=== PATIENT | male | born 1995 | race Caucasian/White ===

== ENCOUNTER 2016-10-11 12:02 | Emergency (ER) | payer SELFPAY ==
[~2016-10-11] VITALS: Ht 185.4 cm; Wt 75.8 kg
[2016-10-11 12:06] VITALS: BP 131/90; PULSE 107; RESP 18; TEMP 98.9; O2SAT 99
--- NOTE | 2016-10-11 12:27 | PD ---
HPI Chief Complaint: ENT Complaint Time Seen by Provider: 12:15 Travel History International Travel<30 days: No Contact w/Intl Traveler<30days: No Traveled to known affect area: No History of Present Illness HPI 21-year-old male presents to the emergency room for evaluation of sore throat and congestion for the past 24 hours. Patient reports chills and sweats overnight but denies any objective fevers. Denies cough. States he is in a house full of people with a GI bug and strep throat. He has not taken anything for her symptoms. Denies chronic medical conditions or daily medications. PFSH Past Medical History Hx Anticoagulant Therapy: No Depression: Yes Cardiovascular Problems: No Chemotherapy: No Cerebrovascular Accident: No Diabetes: No Diminished Hearing: No Respiratory: No Immunizations Current: Yes Social History Alcohol Use: Yes (DAILY) Tobacco Use: Yes (1/2PPD) Substance Use: Yes (MARIJUANA, XANAX) Allergies-Medications (Allergen,Severity, Reaction): Coded Allergies: No Known Allergies (Unverified , 10/11/16) Reported Meds & Prescriptions Reported Meds & Active Scripts Active No Active Prescriptions or Reported Medications Review of Systems Except as stated in HPI: all other systems reviewed are Neg Physical Exam Narrative GENERAL: Well-nourished, well-developed male in no acute distress. Afebrile. Ambulatory. SKIN: Warm and dry. HEAD: Normocephalic. EYES: No scleral icterus. No injection or drainage. NECK: Supple, trachea midline. No JVD or lymphadenopathy. ENT: Mucosa pink and moist. Mild erythema without edema or exudates. No uvular edema. No uvular, palatal, or tonsillar deviation. Airway patent. Nasal turbinates appear normal without nasal blood, purulent drainage or septal hematoma. EARS: Bilateral pinnae and external canals appear within normal limits. Bilateral tympanic membranes without erythema, dullness or perforation. Data Data Last Documented VS Vital Signs Date Time Temp Pulse Resp B/P Pulse Ox O2 Delivery O2 Flow Rate FiO2 10/11/16 12:06 98.9 107 18 131/90 99 Orders Group A Rapid Strep Screen (10/11/16 12:19) Strep Culture (Group A) (10/11/16 12:15) MDM Medical Decision Making Medical Screen Exam Complete: Yes Emergency Medical Condition: Yes Medical Record Reviewed: Yes Differential Diagnosis URI versus strep typical pharyngitis versus influenza less likely Narrative Course 21-year-old male presents to the emergency room for evaluation of cold and sore throat symptoms for the past day. Patient is afebrile well-appearing in the emergency room. Physical exam reassuring. Mild erythema of the pharynx without edema or exudates. Rapid strep is negative. This is URI. Patient discharged with instructions to take [id number] treatments and follow-up with a primary care physician. He understands and agrees to plan. Diagnosis Primary Impression: Upper respiratory infection Qualified Code: J00 - Acute nasopharyngitis Referrals: Primary Care Physician Patient Instructions: General Instructions, Upper Respiratory Infection (ED) Additional Instructions: Rest and drink plenty of fluids. [id number] medications as directed for symptoms. Take ibuprofen with food as directed, as needed for pain. Follow-up with a primary care physician. Return to the emergency room for worsening symptoms. Scripts No Active Prescriptions or Reported Meds Disposition: 01 DISCHARGE HOME Condition: Stable Barbie Segovia Oct 11, 2016 12:27
== END 2016-10-11 13:00 | disposition home or self-care (01) ==
LOC: PHEFT 12:02
DX: J06.9 Acute upper respiratory infection, unspecified (principal); F17.210 Nicotine dependence, cigarettes, uncomplicated; F12.90 Cannabis use, unspecified, uncomplicated
CPT/HCPCS: 87081; 87880; 99283

== ENCOUNTER 2017-04-30 19:51 | Emergency (ER) | payer OTHER ==
[2017-04-30 20:05] VITALS: BP 130/74; PULSE 87; RESP 18; O2SAT 97
--- NOTE | 2017-04-30 20:49 | PD ---
HPI Chief Complaint: Psychiatric Symptoms Time Seen by Provider: 20:49 Travel History International Travel<30 days: No Contact w/Intl Traveler<30days: No History of Present Illness HPI 22-year-old male presents to the emergency department under [place] act by local police for psychiatric evaluation. The patient states that he got to a fight with his after he cut himself. Apparently, due to them being very loud the neighbors called the police. He denies any suicidal or homicidal ideations to me. He states he drank 2 beers today. He states he smokes marijuana weekly. He denies any medical complaints at this time. Patient states his tetanus immunization was updated 1 year ago. PFSH Past Medical History Hx Anticoagulant Therapy: No Depression: Yes Cardiovascular Problems: No Chemotherapy: No Cerebrovascular Accident: No Diabetes: No Diminished Hearing: No Respiratory: No Immunizations Current: Yes Social History Alcohol Use: Yes (DAILY) Tobacco Use: Yes (1/2PPD) Substance Use: Yes (MARIJUANA, XANAX) Allergies-Medications (Allergen,Severity, Reaction): Coded Allergies: No Known Allergies (Unverified , 10/11/16) Reported Meds & Prescriptions Reported Meds & Active Scripts Active No Active Prescriptions or Reported Medications Review of Systems Except as stated in HPI: all other systems reviewed are Neg Physical Exam Narrative GENERAL: Well-nourished, well-developed male patient, afebrile. SKIN: Focused skin assessment warm/dry. Patient has superficial lacerations to the left lower leg and left forearm. HEAD: Normocephalic. Atraumatic EYES: No scleral icterus. No injection or drainage. NECK: Supple, trachea midline. No JVD or lymphadenopathy. CARDIOVASCULAR: Regular rate and rhythm without murmurs, gallops, or rubs. RESPIRATORY: Breath sounds equal bilaterally. No accessory muscle use. Lungs sounds are clear to auscultation. GASTROINTESTINAL: Abdomen soft, non-tender, nondistended. MUSCULOSKELETAL: No cyanosis, or edema. PSYCHIATRIC: No delusional thought processes. No hallucinations. Data Data Last Documented VS Vital Signs Date Time Temp Pulse Resp B/P Pulse Ox O2 Delivery O2 Flow Rate FiO2 04/30/17 22:07 82 18 114/56 97 Room Air 04/30/17 21:55 98.9 Orders Complete Blood Count With Diff (04/30/17 20:15) Comprehensive Metabolic Panel (04/30/17 20:15) Psych Screen (04/30/17 20:15) Drug Screen, Random Urine (04/30/17 20:15) Alcohol (Ethanol) (04/30/17 20:15) Salicylates (Aspirin) (04/30/17 20:15) Tylenol (Acetaminophen) (04/30/17 20:15) Labs Laboratory Tests Test 04/30/17 04/30/17 20:10 20:25 Urine Opiates Screen NEG Urine Barbiturates Screen NEG Urine Amphetamines Screen NEG Urine Benzodiazepines Screen NEG Urine Cocaine Screen NEG Urine Cannabinoids Screen POS White Blood Count 8.9 TH/MM3 Red Blood Count 5.32 MIL/MM3 Hemoglobin 15.8 GM/DL Hematocrit 46.7 % Mean Corpuscular Volume 87.7 FL Mean Corpuscular Hemoglobin 29.7 PG Mean Corpuscular Hemoglobin 33.8 % Concent Red Cell Distribution Width 13.0 % Platelet Count 262 TH/MM3 Mean Platelet Volume 7.2 FL Neutrophils (%) (Auto) 63.9 % Lymphocytes (%) (Auto) 25.9 % Monocytes (%) (Auto) 7.2 % Eosinophils (%) (Auto) 2.0 % Basophils (%) (Auto) 1.0 % Neutrophils # (Auto) 5.7 TH/MM3 Lymphocytes # (Auto) 2.3 TH/MM3 Monocytes # (Auto) 0.6 TH/MM3 Eosinophils # (Auto) 0.2 TH/MM3 Basophils # (Auto) 0.1 TH/MM3 CBC Comment DIFF FINAL Differential Comment Sodium Level 139 MEQ/L Potassium Level 4.0 MEQ/L Chloride Level 105 MEQ/L Carbon Dioxide Level 30.4 MEQ/L Anion Gap 4 MEQ/L Blood Urea Nitrogen 8 MG/DL Creatinine 1.09 MG/DL Estimat Glomerular Filtration 85 ML/MIN Rate Random Glucose 88 MG/DL Calcium Level 9.4 MG/DL Total Bilirubin 0.5 MG/DL Aspartate Amino Transf 24 U/L (AST/SGOT) Alanine Aminotransferase 22 U/L (ALT/SGPT) Alkaline Phosphatase 73 U/L Total Protein 9.1 GM/DL Albumin 5.0 GM/DL Salicylates Level 9.3 MG/DL Acetaminophen Level LESS THAN 2.0 MCG/ML Ethyl Alcohol Level 73 MG/DL MDM Medical Decision Making Medical Screen Exam Complete: Yes Emergency Medical Condition: Yes Medical Record Reviewed: Yes Differential Diagnosis Depression versus anxiety versus alcohol intoxication versus substance induced mood disorder Narrative Course 22-year-old male presents to the emergency Department under [place] act by local police. He cut himself and then he got to fight with his . Police were called due to how well they were. Both he has been in the way for brought in under [place] act. CBC is unremarkable. CMP shows no acute abnormality. Urine drug screen is positive for cannabinoids. Alcohol level is 73. Salicylate level is 9.3. Tylenol level is less than 2.0. Patient is medically cleared for psychiatric screening and disposition. Mental health screening discussed with the patient. Psychiatric screen ordered. Diagnosis Primary Impression: Substance induced mood disorder Additional Instructions: Patient is medically cleared for psychiatric screening and disposition. Scripts No Active Prescriptions or Reported Meds Condition: Rosa Sesay Apr 30, 2017 20:49
[2017-04-30 20:53] LABS: AUTOMATED NEUTROPHIL # 5.7 TH/MM3 (1.8-7.7); BASOPHIL # 0.1 TH/MM3 (0-0.2); EOSINOPHIL # 0.2 TH/MM3 (0-0.4); HEMATOCRIT 46.7 % (39.0-51.0); HEMO FLAGS DIFF FINAL; LYMPH % 25.9 % (9.0-44.0); LYMPHOCYTE # 2.3 TH/MM3 (1.0-4.8); MEAN CELL VOLUME 87.7 FL (80.0-100.0); MEAN CORPUSCULAR HEMOGLOBIN 29.7 PG (27.0-34.0); MEAN CORPUSCULAR HGB CONC 33.8 % (32.0-36.0); MONO % 7.2 % (0.0-8.0); NEUT % 63.9 % (16.0-70.0); PLATELET COUNT 262 TH/MM3 (150-450); RED BLOOD COUNT 5.32 MIL/MM3 (4.50-5.90); WHITE BLOOD COUNT 8.9 TH/MM3 (4.0-11.0)
[2017-04-30 21:08] LABS: ANION GAP 4 MEQ/L (5-15); AST (GOT) 24 U/L (15-37); BICARBONATE 30.4 MEQ/L (21.0-32.0); BLOOD UREA NITROGEN 8 MG/DL (7-18); CHLORIDE 105 MEQ/L (98-107); GLOMERULAR FILTRATION RATE 85 ML/MIN (>89); SODIUM (NA) 139 MEQ/L (136-145)
[2017-04-30 21:10] LABS: ALCOHOL 73 MG/DL (0-5)
[2017-04-30 21:15] LABS: ALKALINE PHOSPHATASE 73 U/L (45-117); ALT (GPT) 22 U/L (12-78); TOTAL BILIRUBIN ADULT 0.5 MG/DL (0.2-1.0)
[2017-04-30 21:28] LABS: ACETAMINOPHEN LESS THAN 2.0 MCG/ML (10.0-30.0)
[2017-04-30 21:55] VITALS: TEMP 98.9
[2017-04-30 22:07] VITALS: BP 114/56; PULSE 82; RESP 18; O2SAT 97
[2017-05-01 02:19] VITALS: BP 128/65; PULSE 63; RESP 17; O2SAT 98
[2017-05-01 06:25] VITALS: BP 122/64; PULSE 67; RESP 18; O2SAT 96
[2017-05-01 10:00] VITALS: BP 128/74; PULSE 90; RESP 18
--- NOTE | 2017-05-01 12:16 | PD ---
History of Present Illness Chief Complaint: Psychiatric Symptoms Time Seen by Provider: 10:30 Travel History International Travel<30 Days: No Contact w/Intl Traveler<30days: No Known affected area: No Legal Status Legal Status: [employer] Act [place] Act Signed By: Danuta Dang History of Present Illness: 22-year-old male brought in under a Ontiver[place] act for cutting himself after a verbal altercation with his . Patient states she came home and found him intoxicated and became quite upset. The 2 got into a loud argument and both parties behave badly. There is some history the also became intoxicated and cut herself. At this point, the patient is no longer intoxicated and he is calm, pleasant and cooperative. He exhibits no suicidal or homicidal ideation, plan or intent. He exhibits no psychotic symptoms and his cognition is intact. He is verbally jenna for safety and would like to meet with his , who is in another part of the emergency department, and go home. PFSH Past Medical History Hx Anticoagulant Therapy: No Depression: Yes Cardiovascular Problems: No Chemotherapy: No Cerebrovascular Accident: No Diabetes: No Diminished Hearing: No Respiratory: No Immunizations Current: Yes Psychiatric History Psychiatric History Hx Psychiatric Treatment: PATIENT DENIES History of Inpatient Treatment: No Guns or firearms in home: No Social History Hx Alcohol Use: Yes (DAILY) Hx Tobacco Use: Yes (1/2PPD) Hx Substance Use: Yes Substance Use Type: Alcohol, Marijuana Other Substances Used: Unable to obtain any information but current use apparent Hx of Substance Use Treatment: No Allergies-Medications (Allergen,Severity, Reaction): Coded Allergies: No Known Allergies (Unverified , 10/11/16) Reported Meds & Prescriptions Reported Meds & Active Scripts Active No Active Prescriptions or Reported Medications Review of Systems Except as stated in HPI: all other systems reviewed are Neg Exam Alert: Yes [place]: Person, Place, Date, Situation Mood: Calm Affect: Appropriate Speech: Clear, Logical Eye Contact: Normal Memory Intact: Immediate, Recent, Remote Insight/Judgement Adequate MDM Medical Decision Making Medical Record Reviewed: Yes Assessment/Plan At this time, the patient is not felt to meet criteria for Ontiveros act. His medical record has been reviewed and this physician has spoken with his nurse. He denies suicidal or homicidal ideation, plan or intent and is cognitively intact. He is verbally jenna for safety and does not meet criteria for involuntary psychiatric hospitalization. Orders Complete Blood Count With Diff (04/30/17 20:15) Comprehensive Metabolic Panel (04/30/17 20:15) Psych Screen (04/30/17 20:15) Drug Screen, Random Urine (04/30/17 20:15) Alcohol (Ethanol) (04/30/17 20:15) Salicylates (Aspirin) (04/30/17 20:15) Tylenol (Acetaminophen) (04/30/17 20:15) Diet Regular Basic (05/01/17 Breakfast) Diet Regular Basic (05/01/17 Lunch) Results Vital Signs Date Time Temp Pulse Resp B/P Pulse Ox O2 Delivery O2 Flow Rate FiO2 05/01/17 10:00 90 18 128/74 Room Air 05/01/17 06:25 67 18 122/64 96 Room Air 05/01/17 02:19 63 17 128/65 98 Room Air 04/30/17 22:07 82 18 114/56 97 Room Air 04/30/17 21:55 98.9 04/30/17 20:05 87 18 130/74 97 Room Air Laboratory Tests Test 04/30/17 04/30/17 20:10 20:25 Urine Opiates Screen NEG Urine Barbiturates Screen NEG Urine Amphetamines Screen NEG Urine Benzodiazepines Screen NEG Urine Cocaine Screen NEG Urine Cannabinoids Screen POS White Blood Count 8.9 Red Blood Count 5.32 Hemoglobin 15.8 Hematocrit 46.7 Mean Corpuscular Volume 87.7 Mean Corpuscular Hemoglobin 29.7 Mean Corpuscular Hemoglobin 33.8 Concent Red Cell Distribution Width 13.0 Platelet Count 262 Mean Platelet Volume 7.2 Neutrophils (%) (Auto) 63.9 Lymphocytes (%) (Auto) 25.9 Monocytes (%) (Auto) 7.2 Eosinophils (%) (Auto) 2.0 Basophils (%) (Auto) 1.0 Neutrophils # (Auto) 5.7 Lymphocytes # (Auto) 2.3 Monocytes # (Auto) 0.6 Eosinophils # (Auto) 0.2 Basophils # (Auto) 0.1 CBC Comment DIFF FINAL Differential Comment Sodium Level 139 Potassium Level 4.0 Chloride Level 105 Carbon Dioxide Level 30.4 Anion Gap 4 Blood Urea Nitrogen 8 Creatinine 1.09 Estimat Glomerular Filtration 85 Rate Random Glucose 88 Calcium Level 9.4 Total Bilirubin 0.5 Aspartate Amino Transf 24 (AST/SGOT) Alanine Aminotransferase 22 (ALT/SGPT) Alkaline Phosphatase 73 Total Protein 9.1 Albumin 5.0 Salicylates Level 9.3 Acetaminophen Level LESS THAN 2.0 Ethyl Alcohol Level 73 Diagnosis Primary Impression: Adjustment disorder with mixed disturbance of emotions and conduct Additional Impression: Alcohol abuse Departure Forms: Tests/Procedures Patient Instructions: General Instructions, Mood Disorders (ED), Medical Clearance for Psychiatric Care (ED) Additional Instructions: Patient is medically cleared for psychiatric screening and disposition. Follow up with outpatient primary care provider. Follow up with outpatient counseling/[place] [facility] Act [phone]. Return to ER if symtoms worsen. Prescriptions No Active Prescriptions or Reported Meds Disposition: 01 DISCHARGE HOME Condition: Stable Problem Qualifiers Tonio Werner MD May 01, 2017 12:16
== END 2017-05-01 12:39 | disposition home or self-care (01) ==
LOC: NEPJ 19:51
DX: F43.25 Adjustment disorder with mixed disturbance of emotions and conduct (principal); F10.10 Alcohol abuse, uncomplicated; F19.94 Other psychoactive substance use, unspecified with psychoactive substance-induced mood disorder; F17.200 Nicotine dependence, unspecified, uncomplicated
CPT/HCPCS: 80053; 80307; 85025; 99283

== ENCOUNTER 2017-12-30 13:57 | Emergency (ER) | payer OTHER ==
[2017-12-30 14:08] VITALS: BP 137/71; PULSE 97; RESP 18; TEMP 98.4; O2SAT 98
[2017-12-30 15:16] LABS: ALBUMIN 4.8 GM/DL (3.4-5.0); ALT (GPT) 24 U/L (12-78); AST (GOT) 22 U/L (15-37); BLOOD UREA NITROGEN 7 MG/DL (7-18); CALCIUM 9.4 MG/DL (8.5-10.1); CHLORIDE 106 MEQ/L (98-107); CREATININE 0.94 MG/DL (0.60-1.30); GLOMERULAR FILTRATION RATE 100 ML/MIN (>89); GLUCOSE,RANDOM 84 MG/DL (74-106); SODIUM (NA) 142 MEQ/L (136-145)
--- NOTE | 2017-12-30 15:25 | PD ---
HPI Chief Complaint: Psychiatric Symptoms Time Seen by Provider: 14:13 Travel History International Travel<30 days: No Contact w/Intl Traveler<30days: No Traveled to known affect area: No History of Present Illness HPI Patient is a 22-year-old male presenting to the emergency department under [place] act for psychiatric evaluation. Patient was observed cutting his arm. Patient denies any suicidal ideations. He reports that he cut his arm because he was upset. His girlfriend and his male friend got an argument, they both walked off in different directions upsetting him. He states they both came back and were fine and he felt better. Apparently a bystander called the police when they noticed he was cutting himself. Patient reports previous suicide attempt. He is homeless currently by choice apparently. Patient is a musician. He has a history of anxiety, ADHD, bipolar disorder, mild schizophrenia. He does not like taking medications. He denies that he hallucinations. He has no physical complaints at this time. Symptom onset is unknown, symptoms are mild in nature. Patient reports cutting helps him cope. PFSH Past Medical History Hx Anticoagulant Therapy: No ADHD: Yes Bipolar Disorder: Yes Anxiety: Yes Depression: Yes Immunizations Current: Yes Schizophrenia: Yes Social History Alcohol Use: Yes (DAILY) Tobacco Use: Yes (1/2PPD) Substance Use: Yes Allergies-Medications (Allergen,Severity, Reaction): Coded Allergies: No Known Allergies (Unverified , 10/11/16) Reported Meds & Prescriptions Reported Meds & Active Scripts Active No Active Prescriptions or Reported Medications Review of Systems Except as stated in HPI: all other systems reviewed are Neg Skin: Positive Lesions Psychiatric: Positive: Mood Disorder, No: Depression, Suicidal Ideations, Homicidal Ideation Physical Exam Narrative GENERAL: Well-developed, well-nourished, slightly disheveled male. Presenting in no acute distress. SKIN: Warm and dry. 8 superficial lacerations to left inner forearm. HEAD: Atraumatic. Normocephalic. EYES: Pupils equal and round. No scleral icterus. No injection or drainage. ENT: No nasal bleeding or discharge. Mucous membranes pink and moist. NECK: Trachea midline. No JVD. CARDIOVASCULAR: Regular rate and rhythm. RESPIRATORY: No accessory muscle use. Clear to auscultation. Breath sounds equal bilaterally. GASTROINTESTINAL: Abdomen soft, non-tender, nondistended. Hepatic and splenic margins not palpable. MUSCULOSKELETAL: Extremities without clubbing, cyanosis, or edema. No obvious deformities. NEUROLOGICAL: Awake and alert. No obvious cranial nerve deficits. Motor grossly within normal limits. Five out of 5 muscle strength in the arms and legs. Normal speech. PSYCHIATRIC: Appropriate mood and affect; insight and judgment normal. Data Data Last Documented VS Vital Signs Date Time Temp Pulse Resp B/P (MAP) Pulse Ox O2 Delivery O2 Flow Rate FiO2 12/30/17 14:08 98.4 97 18 137/71 (93) 98 Room Air Orders Orders Complete Blood Count With Diff (12/30/17 14:13) Comprehensive Metabolic Panel (12/30/17 14:13) Thyroid Stimulating Hormone (12/30/17 14:13) Psych Screen (12/30/17 14:13) Drug Screen, Random Urine (12/30/17 14:13) Alcohol (Ethanol) (12/30/17 14:13) Salicylates (Aspirin) (12/30/17 14:13) Tylenol (Acetaminophen) (12/30/17 14:13) Diet Regular Basic (12/30/17 Dinner) Ed Discharge Order (12/30/17 15:27) Labs Laboratory Tests Test 12/30/17 14:27 12/30/17 14:30 Salicylates Level 3.6 MG/DL Urine Opiates Screen NEG Urine Barbiturates Screen NEG Urine Amphetamines Screen NEG Urine Benzodiazepines Screen NEG Urine Cocaine Screen NEG Urine Cannabinoids Screen POS MDM Medical Decision Making Medical Screen Exam Complete: Yes Emergency Medical Condition: Yes Medical Record Reviewed: Yes Interpretation(s) Vital Signs Date Time Temp Pulse Resp B/P (MAP) Pulse Ox O2 Delivery O2 Flow Rate FiO2 12/30/17 14:08 98.4 97 18 137/71 (93) 98 Room Air Differential Diagnosis Mood disorder versus substance abuse versus impaired coping skills versus schizophrenia versus other Narrative Course Patient is a 22-year-old male presenting to the emergency department under Ontiver[place] act for psychiatric evaluation. Patient is well appearing, his vital signs are stable. Mental health screening discussed with the patient. Psychiatric screen ordered. Patient denied suicidality. Chemistry is unremarkable. Patient is medically cleared. Wounds were cleaned with chlorhexidine 9 and water. They were redressed with gauze and Carlos. Diagnosis Primary Impression: Medical clearance for psychiatric admission Additional Impression: Superficial laceration Scripts No Active Prescriptions or Reported Meds Condition: Allie Mckeon Dec 30, 2017 15:25
[2017-12-30 15:27] LABS: ALKALINE PHOSPHATASE 71 U/L (45-117); TOTAL BILIRUBIN ADULT 0.5 MG/DL (0.2-1.0); TOTAL PROTEIN 8.8 GM/DL (6.4-8.2)
--- NOTE | 2017-12-30 15:30 | PD ---
Physical Exam Narrative Patient was seen by medical team. Patient was seen by psychiatric team. Data Data Last Documented VS Orders Orders Comprehensive Metabolic Panel (12/30/17 14:13) Thyroid Stimulating Hormone (12/30/17 14:13) Psych Screen (12/30/17 14:13) Drug Screen, Random Urine (12/30/17 14:13) Alcohol (Ethanol) (12/30/17 14:13) Salicylates (Aspirin) (12/30/17 14:13) Tylenol (Acetaminophen) (12/30/17 14:13) Ed Discharge Order (12/30/17 15:27) Labs Laboratory Tests Test 12/30/17 14:27 12/30/17 14:30 Blood Urea Nitrogen 7 MG/DL Creatinine 0.94 MG/DL Random Glucose 84 MG/DL Total Protein 8.8 GM/DL Albumin 4.8 GM/DL Calcium Level 9.4 MG/DL Alkaline Phosphatase 71 U/L Aspartate Amino Transf (AST/SGOT) 22 U/L Alanine Aminotransferase (ALT/SGPT) 24 U/L Total Bilirubin 0.5 MG/DL Sodium Level 142 MEQ/L Potassium Level 4.2 MEQ/L Chloride Level 106 MEQ/L Carbon Dioxide Level 27.0 MEQ/L Anion Gap 9 MEQ/L Estimat Glomerular Filtration Rate 100 ML/MIN Thyroid Stimulating Hormone 3rd Gen 0.943 uIU/ML Salicylates Level 3.6 MG/DL Acetaminophen Level LESS THAN 2.0 MCG/ML Ethyl Alcohol Level 75 MG/DL Urine Opiates Screen NEG Urine Barbiturates Screen NEG Urine Amphetamines Screen NEG Urine Benzodiazepines Screen NEG Urine Cocaine Screen NEG Urine Cannabinoids Screen POS MDM Supervised Visit with AZEEM: No Narrative Course Patient was seen by medical team. Patient was seen by psychiatry team. Patient cleared by psychiatry team to be discharged. I lifted his Ontiveros act Diagnosis Primary Impression: Adjustment disorder with mixed disturbance of emotions and conduct Patient Instructions: General Instructions Additional Instruction: Advised patient to follow local physician. Med/Other Pt SpecificInfo: No Change to Meds Scripts No Active Prescriptions or Reported Meds Disposition: 01 DISCHARGE HOME Condition: Stable Akhil Guerrier MD Dec 30, 2017 15:30
[2017-12-30 15:38] LABS: ACETAMINOPHEN LESS THAN 2.0 MCG/ML (10.0-30.0)
--- NOTE | 2017-12-30 16:07 | PD ---
History of Present Illness Chief Complaint: Psychiatric Symptoms Time Seen by Provider: 15:15 Travel History International Travel<30 Days: No Contact w/Intl Traveler<30days: No Known affected area: No Legal Status Legal Status: Ontiveros Act Ontiveros Act Signed By: Corinne Dang History of Present Illness: This is a 22-year-old single, male who presents under Ontiveros act to this facility for reportedly attempting suicide. However, even the Ontiveros act states that when the police spoke with him he stated that he was "cutting his wrists due to him being upset" and at no time has patient reported being suicidal. Reviewed electronic medical record, labs, discuss case with staff. Patient reports cannabis use which was bore out by his toxicology report. Evaluation performed in patient's room. Patient is awake, alert, and oriented. His speech is logical, clear, and organized. He is not internally stimulated. I can elicit no delusional material at this time. Patient's mood is good and his affect is euthymic. Patient admits to placing the superficial cuts on his arm. He states that he self mutilated when he is having difficulty coping. He relates an incident where his "band made and girlfriend had an argument and walked in separate directions". He reports that this has resolved and that he no longer has the urge to self-harm. His mother has corroborated that she feels patient is safe for discharge. Patient reports having a bus ticket to [place] for 7 PM this evening. Discussed this case with Dr. Guerrier from the ED. He agrees with my assessment and has lifted the Ontiveros act. PFSH Past Medical History Hx Anticoagulant Therapy: No ADHD: Yes Bipolar Disorder: Yes Anxiety: Yes Depression: Yes Immunizations Current: Yes Schizophrenia: Yes Psychiatric History Psychiatric History Hx Psychiatric [place] [facility] [place] of Inpatient Treatment: No Social History Hx Alcohol Use: Yes (DAILY) Hx Tobacco Use: Yes (1/2PPD) Hx Substance Use: Yes Substance Use Type: Alcohol, Marijuana Other Substances Used: Unable to obtain any information but current use apparent Hx of Substance Use Treatment: No Allergies-Medications (Allergen,Severity, Reaction): Coded Allergies: No Known Allergies (Unverified , 10/11/16) Reported Meds & Prescriptions Reported Meds & Active Scripts Active No Active Prescriptions or Reported Medications Mental Status Examination Appearance: Appropriate Consciousness: Alert Orientation: x4 Motor Activity: Normal gait Speech: Unremarkable Language: Adequate Fund of Knowledge: Adequate Attention and Concentration: Adequate Memory: Unremarkable Mood: Appropriate Affect: Appropriate Thought Process & Associations: Intact Thought Content: Appropriate Hallucination Type: None Delusion Type: None Suicidal Ideation: No Suicidal Plan: No Suicidal Intention: No Homicidal Ideation: No Homicidal Plan: No Homicidal Intention: No Insight: Adequate Judgment: Impulsive MDM Medical Decision Making Medical Record Reviewed: Yes Assessment/Plan 22-year-old single, male who presents under a Ontiveros act to this facility for self-mutilation and "attempted suicide". Patient denies at any time feeling suicidal or attempting to take his life. He states that he has a history of self-mutilation via cutting. He admits to putting superficial cuts on his arm due to being upset over a disagreement between his friends. He denies having any further urges to cause self-harm. His speech is clear, logical, and organized. He denies suicidal and homicidal ideation as well as AVH. There is no indication of internal stimulation. I can elicit no delusional material. Is alert and oriented 4. His mood is good and his affect is euthymic. His mother corroborates his story over the phone. Patient has a bus ticket to go to [place] at 7 PM this evening and he and his mom would like him to make that. At this time he does not meet Ontiveros act criteria. Consulted with Dr. Guerrier in the ED who agrees with this assessment and has lifted the Ontiveros act. Patient is to be discharged with orders to present to the nearest ED if he has further urges to self harm. Orders Orders Complete Blood Count With Diff (12/30/17 14:13) Comprehensive Metabolic Panel (12/30/17 14:13) Thyroid Stimulating Hormone (12/30/17 14:13) Psych Screen (12/30/17 14:13) Drug Screen, Random Urine (12/30/17 14:13) Alcohol (Ethanol) (12/30/17 14:13) Salicylates (Aspirin) (12/30/17 14:13) Tylenol (Acetaminophen) (12/30/17 14:13) Diet Regular Basic (12/30/17 Dinner) Ed Discharge Order (12/30/17 15:27) Results Vital Signs Date Time Temp Pulse Resp B/P (MAP) Pulse Ox O2 Delivery O2 Flow Rate FiO2 12/30/17 14:08 98.4 97 18 137/71 (93) 98 Room Air Laboratory Tests Test 12/30/17 14:27 12/30/17 14:30 Blood Urea Nitrogen 7 Creatinine 0.94 Random Glucose 84 Total Protein 8.8 Albumin 4.8 Calcium Level 9.4 Alkaline Phosphatase 71 Aspartate Amino Transf (AST/SGOT) 22 Alanine Aminotransferase (ALT/SGPT) 24 Total Bilirubin 0.5 Sodium Level 142 Potassium Level 4.2 Chloride Level 106 Carbon Dioxide Level 27.0 Anion Gap 9 Estimat Glomerular Filtration Rate 100 Thyroid Stimulating Hormone 3rd Gen 0.943 Salicylates Level 3.6 Acetaminophen Level LESS THAN 2.0 Ethyl Alcohol Level 75 Urine Opiates Screen NEG Urine Barbiturates Screen NEG Urine Amphetamines Screen NEG Urine Benzodiazepines Screen NEG Urine Cocaine Screen NEG Urine Cannabinoids Screen POS Diagnosis Primary Impression: Adjustment disorder with mixed disturbance of emotions and conduct Psychiatrically Cleared: Yes Referrals: [facility] (Out patient) call for appointment Medication Management Departure Forms: Tests/Procedures Patient Instructions: General Instructions, Stress (ED) Additional Instructions: Advised patient to follow local physician. Prescriptions No Active Prescriptions or Reported Meds Disposition: 01 DISCHARGE HOME Condition: Stable Desire Matute Dec 30, 2017 16:07
== END 2017-12-30 18:10 | disposition home or self-care (01) ==
LOC: NEPJ 13:57
DX: F43.25 Adjustment disorder with mixed disturbance of emotions and conduct (principal); F12.90 Cannabis use, unspecified, uncomplicated; F17.200 Nicotine dependence, unspecified, uncomplicated
CPT/HCPCS: 80053; 80307; 84443; 99284

== ENCOUNTER 2018-02-04 12:14 | Emergency (ER) | payer SELFPAY ==
[~2018-02-04] VITALS: Ht 188 cm; Wt 80.0 kg
[2018-02-04 12:18] VITALS: BP 128/81; PULSE 89; RESP 20; TEMP 98.5; O2SAT 99
[2018-02-04] MEDS ORDERED: AMOX875T PO (12:47)
--- NOTE | 2018-02-04 12:48 | PD ---
HPI Chief Complaint: Cold / Flu Symptoms Time Seen by Provider: 12:39 Travel History International Travel<30 days: No Contact w/Intl Traveler<30days: No Traveled to known affect area: No History of Present Illness HPI 22-year-old male presents to the emergency department for evaluation of sore throat that started this morning. Patient states he has a history of strep with similar symptoms. He states that last time he tested negative on the rapid strep and received a letter in the mail 2 weeks later at stating that he has strep throat. Patient states his has similar symptoms and was just diagnosed with strep throat. Patient denies any fevers, but states he feels like he is getting one. He denies any chest pain shortness breath. No cough or congestion. No abdominal pain. No nausea, vomiting, diarrhea. He has no chronic medical problems and takes no prescribed medications. No known allergies. No exacerbating or alleviating factors. Mild severity. PFSH Past Medical History Hx Anticoagulant Therapy: No ADHD: Yes Bipolar Disorder: Yes Anxiety: Yes Depression: Yes Immunizations Current: Yes Schizophrenia: Yes Social History Alcohol Use: Yes (DAILY) Tobacco Use: Yes (1/2PPD) Substance Use: Yes (Marijuana) Allergies-Medications (Allergen,Severity, Reaction): Coded Allergies: No Known Allergies (Unverified , 10/11/16) Reported Meds & Prescriptions Reported Meds & Active Scripts Active No Active Prescriptions or Reported Medications Review of Systems Except as stated in HPI: all other systems reviewed are Neg Physical Exam Narrative GENERAL: Well-nourished, well-developed male patient, afebrile. SKIN: Focused skin assessment warm/dry. HEAD: Normocephalic. Atraumatic. ENT: Mucosa pink and moist. Bilateral tonsils are erythematous, minimal exudates to the left tonsil. No evidence of peritonsillar abscess. No uvular edema. No uvular, palatal, or tonsillar deviation. Airway patent. Nasal turbinates appear normal without nasal blood, purulent drainage or septal hematoma. Bilateral tympanic membranes clear without erythema or perforation. EYES: No scleral icterus. No injection or drainage. NECK: Supple, trachea midline. No JVD or lymphadenopathy. CARDIOVASCULAR: Regular rate and rhythm without murmurs, gallops, or rubs. RESPIRATORY: Breath sounds equal bilaterally. No accessory muscle use. Lung sounds are clear to auscultation. GASTROINTESTINAL: Abdomen soft, non-tender, nondistended. MUSCULOSKELETAL: No cyanosis, or edema. BACK: Nontender without obvious deformity. No CVA tenderness. Data Data Last Documented VS Vital Signs Date Time Temp Pulse Resp B/P (MAP) Pulse Ox O2 Delivery O2 Flow Rate FiO2 02/04/18 12:18 98.5 89 20 128/81 (97) 99 MDM Medical Decision Making Medical Screen Exam Complete: Yes Emergency Medical Condition: Yes Medical Record Reviewed: Yes Differential Diagnosis Strep pharyngitis versus viral pharyngitis versus URI Narrative Course 22-year-old male presents to the emergency department for evaluation of sore throat since this morning. He states that his has similar symptoms and was diagnosed with strep. Patient will be treated with amoxicillin. He is starting Tylenol or ibuprofen [id number] follow-up with his primary care physician. The patient was discharged in stable condition with instructions, including return instructions and follow up instructions. Diagnosis Primary Impression: Pharyngitis Qualified Codes: J02.9 - Acute pharyngitis, unspecified Referrals: Primary Care Physician call for appointment Patient Instructions: General Instructions, Pharyngitis (ED) Departure Forms: Tests/Procedures, Work Release Enter return to work date: February 06, 2018 Additional Instructions: Take antibiotic as directed until gone. This is free at [facility]. [id number] Tylenol/ibuprofen for pain. Warm salt water gargles. Follow-up with a primary care physician. Return to the emergency department for any acute worsening of symptoms. Med/Other Pt SpecificInfo: Prescription(s) given Scripts Amoxicillin (Amoxicillin) 875 Mg Tab 875 MG PO BID for Infection for 10 Days, #20 TAB 0 Refills Prov: Elliot,Rosa MCKEON 02/04/18 Disposition: 01 DISCHARGE HOME Condition: Stable Rosa Zarate February 04, 2018 12:48
== END 2018-02-04 13:07 | disposition home or self-care (01) ==
LOC: NEPK 12:14
DX: J02.9 Acute pharyngitis, unspecified (principal); F90.9 Attention-deficit hyperactivity disorder, unspecified type; F31.9 Bipolar disorder, unspecified; F41.9 Anxiety disorder, unspecified; F20.9 Schizophrenia, unspecified; F17.200 Nicotine dependence, unspecified, uncomplicated; F12.90 Cannabis use, unspecified, uncomplicated
CPT/HCPCS: 99283